=== PATIENT | female | born 1990 | race Caucasian/White ===

== ENCOUNTER 2016-12-23 21:10 | Outpatient (CLI) | payer MEDICAID ==
[~2016-12-23] VITALS: Ht 161.3 cm; Wt 81.2 kg
[2016-12-23 21:21] VITALS: Ht 161.3 cm; Wt 81.2 kg
[2016-12-23 21:22] VITALS: BP 115/66; RESP 18
[2016-12-23] MEDS ORDERED: PREN1TAB62 PO (21:24)
[2016-12-23] MEDS ORDERED: LACTATED RINGER'S 1,000 ML IV SCH (22:23)
[2016-12-23 23:50] LABS: ADD UMIC NO; URINE BILIRUBIN (Dip) NEGATIVE (NEGATIVE); URINE BLOOD (Dip) NEGATIVE (NEGATIVE); URINE COLOR LT. YELLOW (YELLOW); URINE GLUCOSE (Dip) NEGATIVE (NEGATIVE); URINE KETONES (Dip) NEGATIVE (NEGATIVE); URINE LEUKOCYTE ESTERASE (Dip) NEGATIVE (NEGATIVE); URINE NITRITE (Dip) NEGATIVE (NEGATIVE); URINE TOTAL PROTEIN (Dip) NEGATIVE (NEGATIVE); URINE UROBILINOGEN (Dip) 0.2 E.U./dL (0.1-1.0)
--- NOTE | 2016-12-24 01:42 | TRIAGE ---
OB Triage Datetime Report Generated by CPN: 12/24/2016 01:41 Datetime: 12/24/2016 00:30 Stage of : OB Triage Monitor Mode: External Heart Rate FHR Baseline Rate: 135 Monitor Mode: External US FHR Baseline Changes: No Baseline Change Variability: Moderate 6-25 bpm Accelerations: 15X15 Decelerations: None Category: Category I Datetime: 12/23/2016 23:17 Labor Evaluation Frequency: 0 Monitor Mode: External Heart Rate FHR Baseline Rate: 135 Monitor Mode: External US FHR Baseline Changes: No Baseline Change Variability: Moderate 6-25 bpm Accelerations: 15X15 Decelerations: None Category: Category I Datetime: 12/23/2016 22:30 Labor Evaluation Frequency: 5-7 Monitor Mode: External Duration (sec)2399: 60 Quality: Mild Pattern: Normal: <= 5 Contractions in 10 Minutes Resting Tone [place]: Relaxed Heart Rate FHR Baseline Rate: 135 Monitor Mode: External US FHR Baseline Changes: No Baseline Change Variability: Moderate 6-25 bpm Accelerations: 15X15 Decelerations: None Category: Category I Datetime: 12/23/2016 21:51 Vaginal Exam Dilatation (cms): 0.0 Effacement (%): 0 Station: -3 Exam By: Lamont TOVAR RN Vaginal Bleeding: None Cervix, Consistency: Firm Cervix, Position: Posterior Datetime: 12/23/2016 21:44 EGA: 31.1 Datetime: 12/23/2016 21:40 EGA: 31.1 Datetime: 12/23/2016 21:18 Stage of : OB Triage Time of Arrival: 12/23/2016 21:00 Arrived By: Wheelchair Chief Complaint: LOWER LEFT ABDOMINAL PAIN/ RT LEG PAIN INTERMITENT Movement: Present Contractions: Irregular Rupture of Membranes: Denies Vaginal Bleeding: None Vaginal Discharge: Denies Recent Sexual Intercouse: Denies Abdominal Trauma: Not Applicable Patient Complaints: None Time Provider Notified: 12/23/2016 21:55 Provider Notified: DR CHEATHAM Initial Plan: CALL MD Vivi Maternal Assessment Level of Consciousness: Fully Conscious DTR's/Clonus: DTRs 2+; No Clonus Headache: Denies Blurred Vision: No Respiratory Effort: Unlabored; Regular Rhythm; Equal Expansion Breath Sounds, Left: Clear and Equal Breath Sounds, Right: Clear and Equal Nausea/Vomiting: Denies RUQ Epigastric Pain: Denies Lower Extremities Edema: None Degree: None Upper Extremities Edema: None Degree: None Facial Edema: None Temperature Route: Oral Fall Risk Assessment History of Falling: (0) No Secondary Diagnosis: (0) No Ambulatory Aid: (0) Bedrest/Nurse Assist IV Therapy: (0) No Gait: (0) Normal/Bedrest/Immobile Mental Status: (0) Oriented to Own Ability Fall Score: 0 Fall Risk Score Definition: No Risk: No action required Monitor Mode: External Monitor Mode: External US Pain Assessment Pain Scale: 7 Pain Presence: Intermittent Pain Location: Abdomen; Right Leg
[2016-12-25] MEDS ORDERED: LACTATED RINGER'S 1,000 ML IV SCH
== END 2016-12-24 00:45 | disposition home or self-care (01) ==
LOC: OBT 21:10 → L-D 21:10 → OBT 12-24 00:45
PROVIDERS: ATTEND Obstetrics & Gynecology
DX: O60.03 Preterm labor without delivery, third trimester (principal); Z3A.31 31 weeks gestation of pregnancy
CPT/HCPCS: 36415; 81003; 82731; 87086; 96360; 96361; J7120; Z7500; G0463

== ENCOUNTER 2017-02-27 09:00 | Inpatient (IN) | payer MEDICAID ==
[~2017-02-27] VITALS: Ht 160 cm; Wt 86.0 kg
[~2017-02-27 09:00] MED LIST: PREN1TAB62 PO
[2017-02-27] MEDS: LACTATED RINGER'S 1,000 ML IV SCH ×2 (09:53→17:18)
[2017-02-27 09:54] VITALS: Ht 160 cm; Wt 86.0 kg
[2017-02-27 09:55] VITALS: BP 116/65; PULSE 89; RESP 16
[2017-02-27] MEDS ORDERED: CARBOPROST 250 MCG INJ IM PRN (10:00)
[2017-02-27] MEDS ORDERED: ACETAMINOPHEN/CODEINE #3 TAB PO PRN (10:00)
[2017-02-27] MEDS ORDERED: METHYLERGONOVINE 0.2 MG INJ IM PRN (10:00)
[2017-02-27] MEDS ORDERED: OXYTOCIN 30 UNITS/LR 500 ML IV SCH ×3 (10:00→11:00)
[2017-02-27] MEDS ORDERED: OXYCODONE/ASPIRIN (4.88/325) TAB PO PRN (10:00)
[2017-02-27] MEDS ORDERED: MISOPROSTOL 200 MCG TAB PR PRN (10:00)
[2017-02-27] MEDS ORDERED: OXYTOCIN 30 UNITS/LR 500 ML IV PRN (10:00)
[2017-02-27] MEDS ORDERED: IBUPROFEN 600 MG TAB PO PRN (10:00)
[2017-02-27] MEDS ORDERED: LIDOCAINE 1% (MPF) 30 ML INJ INJ PRN (10:00)
[2017-02-27 10:09] LABS: ADD SCAN DIFF NO
[2017-02-27 10:12] LABS: BASOPHILS % 0.2 % (0.0-2.0); EOSINOPHILS # 0.1 10^3/ul (0.0-0.5); EOSINOPHILS % 0.9 % (0.0-7.0); HEMATOCRIT 33.7 % (37.0-47.0); LYMPHOCYTES # 1.4 10^3/ul (0.8-2.9); LYMPHOCYTES % 13.7 % (15.0-51.0); MEAN CORPUSCULAR HEMOGLOBIN 28.7 pg (29.0-33.0); MEAN CORPUSCULAR HGB CONC 32.6 g/dl (32.0-37.0); MEAN PLATELET VOLUME 11.4 fl (7.4-10.4); MONOCYTE # 0.9 10^3/ul (0.3-0.9); MONOCYTES % 8.9 % (0.0-11.0); NEUTROPHIL # 7.7 10^3/ul (1.6-7.5); NEUTROPHILS % 74.8 % (39.0-77.0); PLATELET COUNT 195 10^3/UL (140-415); RED BLOOD COUNT 3.83 10^6/ul (4.20-5.40); WHITE BLOOD COUNT 10.3 10^3/ul (4.8-10.8)
[2017-02-27 10:22] LABS: INR 0.91; PARTIAL THROMBOPLASTIN TIME 25.6 Sec (25.0-35.0); PROTIME 12.2 Sec (12.2-14.2)
[2017-02-27] MEDS ORDERED: LACTATED RINGER'S 1,000 ML IV PRN (11:00)
[2017-02-27] MEDS ORDERED: MINERAL OIL LIGHT 10 ML VIAL TOP PRN (11:00)
--- NOTE | 2017-02-27 17:57 | HP ---
Date/Time of Note Date/Time of Note DATE: 02/27/17 TIME: 17:54 OB - History Hx of Present Free Text/Dictation admitted for repeat C/S at term Last Menstrual Period: Jun 08, 2016 Estimated Due Date: Mar 04, 2017 : 4 Para: 3 Ultrasounds: Normal mid trimester US Obstetrical Complications: Gestational Diabetes Medical Complications: None Past Family/Social History * Past Medical, Surgical, Family and Obstetric Histories reviewed from chart. Blood Type: O+ Rubella: immune RPR/VDRL: Negative GBS Status: Negative HBsAG: Negative OB Admission Exam Vital Signs Vital Signs Vital Signs Date Time Temp Pulse Resp B/P Pulse Ox O2 Delivery O2 Flow Rate FiO2 02/27/17 09:55 99.5 89 16 116/65 Physical Exam HEENT: WNL Heart: Rhythm Normal Lungs: Clear, Equal Abdomen: WNL Extremities: Normal Reflexes: Normal Cervical Dilatation: None Effacement: 0% Station: -3 Membranes: Intact Heart Rate: 130's Accelerations: Accelerations Present Decelerations: No Decelerations Varibility: Marked Contractions on Admission: None Last 72 hours Lab Results CBC & BMP 02/27/17 09:50 OB Assessment/Plan Other Assessment: term gestation previous C/S X 3 Other plan: repeat C/S ANT ZAVALA MD Feb 27, 2017 17:57
--- NOTE | 2017-02-27 18:01 | OPR ---
Operative Report Planned Procedure Procedure date Feb 27, 2017 Procedure(s) repeat C/S Performed by: ANT ZAVALA MD Assisting provider: MALOU DUKE MD Anesthesiologist: PRETTY TRENT MD Pre-procedure diagnosis term gestation previous C/S X 3 Anesthesia Type: spinal Procedure Description Under satisfactory anaesthesia a Pfannenstiel incision was made two fingerbreadth above and parallel to the symphysis of pubis around the previous scar and previous scar was removed Incision was extended laterally to the border of the Recti muscles on either sides. Incision was carried down with sharp and blunt dissection until fascia was reached. Anterior Recti muscle fascia was incised in mid portion and incision extended laterally to the border of skin incision. Fascia was mobilized from muscle superiorly and Recti muscles were from midline using sharp and blunt dissection. Peritoneum was visualized; Avoiding bowel and bladder it was incised . Incision was extended superiorly and inferiorly. Bladder blade was placed. Posterior peritoneum covering the lower segment of the uterus and lower segment of the uterus were incised.Low transverse uterine incision was made on lower segment of the uterus. Incision extended laterally to the border of Round Lig. on either sides and baby was delivered from OT. position . Amniotic fluid appeared clear. Cord blood was obtained and cord had 3 vessels . Placenta was delivered spontaneously and appeared intact and complete. Intrauterine cavity was rubbed with a laparotomy sponge. Uterine incision was closed in 2 layers using running stitches of No1 Monocryl. Hemostasis appeared secure. Ovaries and Fallopian tubes were within normal limits. Peritoneum and Recti muscles with running stitches of 20 Vicryl. Fascia with running stitch of No 1 PDS. Subcutaneous tissue with running stitches of 20 Chromic and skin was closed using corbin. Patient tolerated the procedure well and was transferred to [facility] in good condition. Post-Procedure Post-procedure diagnosis S/P C/S Findings: Live Baby Specimen removed: No Complications: None Pt Condition post procedure: stable Disposition: PACU Physician Certification I, the undersigned physician, hereby certify that I have discussed the procedure described in this consent form with this patient (or the patient's legal dental detail representative), including: * The risk and benefits of the procedure; * Any adverse reactions that may reasonably be expected to occur; * Any alternative efficacious methods of treatment which may be medically viable ; * The potential problems that may occur during recuperation; * Potential for blood transfusion and associated risks/benefits; and * Any research or economic interest I may have regarding this treatment. I further certify that the patient/legally responsible person was encouraged to ask question and that all questions were answered. ANT ZAVALA MD Feb 27, 2017 18:01
--- NOTE | 2017-02-27 19:33 | HP ---
Date/Time of Note Date/Time of Note DATE: 02/27/17 TIME: 19:29 OB - History Hx of Present Free Text/Dictation admitted for induction of the labor at 40 + weeks Last Menstrual Period: May 24, 2016 Estimated Due Date: Feb 27, 2017 : 2 Para: 1 Care: Good Care Ultrasounds: Normal mid trimester US Obstetrical Complications: None Past Family/Social History * Past Medical, Surgical, Family and Obstetric Histories reviewed from chart. Blood Type: O+ Rubella: immune RPR/VDRL: Negative GBS Status: Negative HBsAG: Negative OB Admission Exam Vital Signs Vital Signs Vital Signs Date Time Temp Pulse Resp B/P Pulse Ox O2 Delivery O2 Flow Rate FiO2 02/27/17 09:55 99.5 89 16 116/65 Physical Exam HEENT: WNL Heart: Rhythm Normal Lungs: Clear, Equal Abdomen: WNL Extremities: Normal Reflexes: Normal Cervical Dilatation: 1cm Effacement: 50% Station: -3 Membranes: Intact Heart Rate: 130's Accelerations: Accelerations Present Decelerations: No Decelerations Varibility: Moderate Contractions on Admission: < 5 Minutes Apart Date/Time Contractions Began: ? Frequency of Contractions: ? Duration: ? Last 72 hours Lab Results CBC & BMP 02/27/17 09:50 OB Assessment/Plan Reason for admission: induction of labor Other Assessment: term gestation for induction of the labor Induction Method: per Pitocin Protocol ANT ZAVALA MD Feb 27, 2017 19:33
[2017-02-27] MEDS ORDERED: BUTORPHANOL 2 MG INJ IV PRN (20:00)
[2017-02-27] MEDS ORDERED: MINERAL OIL LIGHT 10 ML VIAL TOP ONE (22:30)
--- NOTE | 2017-02-27 23:59 | LDN ---
Date/Time of Note Date/Time of Note DATE: 02/27/17 TIME: 23:56 Delivery Summary of a viable infant over intact perineum Weeks of Gestation 40 Placenta Delivered: Spontaneously, Intact & Complete Meconium: none Episiotomy: No Laceration repair: small vestibular laceration was repaired with 4 0 Chromic Anesthesia type: Local Estimated blood loss: 300 Sponge & Needle done & correct: Yes All needle counts correct: Yes Any foreign bodies felt in the: No Problems: Delivery Information Sex Infant Sex: female Apgars 1 Minute: 9 5 Minute: 9 Suctioning Nose & mouth suctioned at [place]: Yes Delee suction performed: No Umbilical Cord Umbilical cord with: 3 Vessels Cord presentations: no nuchal cord Cord Blood was obtained: Yes Mother & Baby Disposition Disposition Mom & Baby to Maternity; Good: Yes (mother and baby were recovered in good condition ) Mom transferred to: Other (maternity ) Baby to NICU: No ANT ZAVALA MD Feb 27, 2017 23:59
[2017-02-28 01:50] VITALS: BP 109/57; PULSE 79; RESP 19
[2017-02-28] MEDS ORDERED: BENZOCAINE 20% 56 ML SPRAY TOP PRN (02:00)
[2017-02-28] MEDS ORDERED: ZOLPIDEM 5 MG TAB PO PRN (02:00)
[2017-02-28] MEDS ORDERED: WITCH HAZEL/GLYCERIN PAD PR PRN (02:00)
[2017-02-28] MEDS ORDERED: OXYTOCIN 30 UNITS/LR 500 ML IV PRN (02:00)
[2017-02-28] MEDS ORDERED: LANOLIN 7 GM TUBE TOP PRN (02:00)
[2017-02-28] MEDS ORDERED: DIBUCAINE 1% 30 GM OINT PR PRN (02:00)
[2017-02-28] MEDS ORDERED: CARBOPROST 250 MCG INJ IM PRN (02:00)
[2017-02-28] MEDS ORDERED: MISOPROSTOL 200 MCG TAB PR PRN (02:00)
[2017-02-28] MEDS ORDERED: METHYLERGONOVINE 0.2 MG INJ IM PRN (02:00)
[2017-02-28] MEDS ORDERED: ACETAMINOPHEN/CODEINE #3 TAB PO PRN ×2 (02:00)
[2017-02-28 03:00] VITALS: BP 106/58; PULSE 88; RESP 19
[2017-02-28] MEDS: LACTATED RINGER'S 1,000 ML IV* SCH ×2 (04:24→09:59)
[2017-02-28] MEDS: CEPHALEXIN 500 MG CAP PO SCH ×4 (05:30→23:46)
[2017-02-28] MEDS: IBUPROFEN 600 MG TAB PO SCH ×4 (05:30→23:46)
[2017-02-28 08:00] VITALS: BP 107/53; PULSE 80; RESP 17
[2017-02-28 08:44] LABS: ADD SCAN DIFF NO
[2017-02-28 08:47] LABS: BASOPHILS % 0.1 % (0.0-2.0); EOSINOPHILS % 0.1 % (0.0-7.0); HEMATOCRIT 30.2 % (37.0-47.0); HEMOGLOBIN 9.6 g/dl (12.0-16.0); LYMPHOCYTES # 1.5 10^3/ul (0.8-2.9); LYMPHOCYTES % 9.1 % (15.0-51.0); MEAN CORPUSCULAR HEMOGLOBIN 28.4 pg (29.0-33.0); MEAN CORPUSCULAR HGB CONC 31.8 g/dl (32.0-37.0); MEAN CORPUSCULAR VOLUME 89.3 fl (82.0-101.0); MEAN PLATELET VOLUME 11.8 fl (7.4-10.4); MONOCYTE # 1.2 10^3/ul (0.3-0.9); MONOCYTES % 7.4 % (0.0-11.0); NEUTROPHIL # 13.6 10^3/ul (1.6-7.5); NEUTROPHILS % 82.6 % (39.0-77.0); PLATELET COUNT 175 10^3/UL (140-415); RED BLOOD COUNT 3.38 10^6/ul (4.20-5.40); RED CELL DISTRIBUTION WIDTH 15.4 % (11.5-14.5); WHITE BLOOD COUNT 16.5 10^3/ul (4.8-10.8)
[2017-02-28] MEDS: SENNA/DOCUSATE NA (8.6MG/50MG) TAB PO SCH ×2 (09:28→21:19)
[2017-02-28] MEDS: MAGNESIUM HYDROXIDE 30ML CUP PO SCH ×2 (09:28→21:19)
[2017-02-28 12:10] VITALS: BP 125/65; PULSE 84; RESP 20
[2017-02-28 16:20] VITALS: BP 112/64; PULSE 80; RESP 17
--- NOTE | 2017-02-28 16:46 | DS ---
Date/Time of Note Date/Time of Note home next day DATE: 02/28/17 TIME: 16:45 Obstetrical Discharge Record Final Diagnosis Final Diagnosis: Term delivered Other Final Diagnosis S/P vaginal delivery Vaginal Delivery Obstetrical Delivery: Spontaneous, Laceration, Repaired Complications Augmentation: Yes Condition on Discharge Physical Assessment Last Vitals: see nurses notes Voiding: Yes Bowel Movement: Yes Breast: Soft, non-tender, Filling Fundus: Firm Abdomen and Incision: soft BS + Episiotomy: NA Calf Tenderness: No Patient Condition: Good ANT ZAVALA MD Feb 28, 2017 16:46
--- NOTE | 2017-02-28 16:48 | PD.PPDC ---
[employer]AVE Discharge Instruction Provider Information Physician Information 26 y/o female had vaginal delivery Diagnosis Final Diagnosis: S/P vaginal delivery Condition Patient Condition: Good Diet Diet: Resume Regular Diet Activity/Restrictions Activity: Normal Activity May Shower Restrictions: Nothing in the Vagina Return to Work or School: April 17, 2017 Follow-up Follow-up with Physician: 4, Week/Weeks (in clinic ) Return to clinic for OB Instructions: Breast Tenderness Depression ANT ZAVALA MD Feb 28, 2017 16:48
[2017-02-28] MEDS ORDERED: IBUP-1542 PO (16:49)
[2017-02-28] MEDS ORDERED: CEPH500C PO (16:49)
[2017-02-28 19:35] VITALS: BP 122/62; PULSE 79
[2017-03-01 03:50] VITALS: BP 111/60; PULSE 70; RESP 19
[2017-03-01] MEDS: IBUPROFEN 600 MG TAB PO SCH ×2 (05:42→11:54)
[2017-03-01] MEDS: CEPHALEXIN 500 MG CAP PO SCH ×2 (05:42→11:54)
[2017-03-01 07:45] VITALS: BP 95/61; PULSE 79; RESP 18
[2017-03-01] MEDS ORDERED: DIPHTH/TET/ACEL PERTUSS (ADULT) 0.5 ML VIAL IM* ONE (09:00)
[2017-03-01] MEDS ORDERED: VARICELLA VACCINE LIVE/PF 1,350 UNIT/0.5 ML ML SC* ONE (09:00)
[2017-03-01] MEDS ORDERED: MEASLES,MUMPS,RUBELLA VACCINE INJ SC* ONE (09:00)
[2017-03-01] MEDS: SENNA/DOCUSATE NA (8.6MG/50MG) TAB PO SCH (09:27)
[2017-03-01] MEDS: MAGNESIUM HYDROXIDE 30ML CUP PO SCH (09:27)
[2017-03-01 10:13] LABS: ADD SCAN DIFF NO
[2017-03-01 10:16] LABS: BASOPHILS % 0.4 % (0.0-2.0); EOSINOPHILS # 0.1 10^3/ul (0.0-0.5); EOSINOPHILS % 1.1 % (0.0-7.0); HEMATOCRIT 30.1 % (37.0-47.0); HEMOGLOBIN 9.5 g/dl (12.0-16.0); MEAN CORPUSCULAR HEMOGLOBIN 28.6 pg (29.0-33.0); MEAN CORPUSCULAR HGB CONC 31.6 g/dl (32.0-37.0); MEAN CORPUSCULAR VOLUME 90.7 fl (82.0-101.0); MEAN PLATELET VOLUME 11.5 fl (7.4-10.4); MONOCYTE # 0.8 10^3/ul (0.3-0.9); NEUTROPHIL # 7.6 10^3/ul (1.6-7.5); NEUTROPHILS % 70.7 % (39.0-77.0); PLATELET COUNT 184 10^3/UL (140-415); RED BLOOD COUNT 3.32 10^6/ul (4.20-5.40); RED CELL DISTRIBUTION WIDTH 15.5 % (11.5-14.5); WHITE BLOOD COUNT 10.7 10^3/ul (4.8-10.8)
== END 2017-03-01 16:41 | disposition home or self-care (01) | DRG 775 ==
LOC: L-D 09:14 → PP1 02-28 01:48
PROVIDERS: ADMIT Obstetrics & Gynecology; ATTEND Obstetrics & Gynecology
PROC: 0HQ9XZZ Repair Perineum Skin, External Approach (ICD-10-PCS; 2017-02-27)
PROC: 3E033VJ Introduction of Other Hormone into Peripheral Vein, Percutaneous Approach (ICD-10-PCS; 2017-02-27)
PROC: 10E0XZZ Delivery of Products of Conception, External Approach (ICD-10-PCS; principal; 2017-02-27 09:00)
DX: O48.0 Post-term pregnancy (principal); O70.0 First degree perineal laceration during delivery; Z3A.40 40 weeks gestation of pregnancy; Z37.0 Single live birth
CPT/HCPCS: 85025; 85610; 85730; 86592; 86900; 86901; 87070; 87340; 90715; 90716; J2590; J7120

== ENCOUNTER 2019-04-04 17:06 | Emergency (ER) | payer MEDICAID ==
[~2019-04-04] VITALS: Ht 162.6 cm; Wt 76.5 kg
[~2019-04-04 17:06] MED LIST changes: +CEPH500C PO; +IBUP-1542 PO
[2019-04-04 17:58] VITALS: Ht 162.6 cm; Wt 76.5 kg
[2019-04-04] MEDS ORDERED: AMOX1TAB10 PO (20:28)
[2019-04-04] MEDS ORDERED: DIPHTH/TET/ACEL PERTUSS (ADULT) 0.5 ML VIAL IM* ONE (20:30)
--- NOTE | 2019-04-04 20:32 | ERD ---
ER Documentation Chief Complaint Chief Complaint R knee/leg pain after dog bite earlier today HPI 28-year-old female no significant past medical history presents for right knee dog bite earlier today. States that it was her boss dog. The dog is fully immunized. She states that she is in 6 out of 10 pain that is described as sharp. Denies fevers or chills. Denies chest pain or shortness of breath. She does not know when the last tetanus shot was. Otherwise no other modifying factors noted, no treatment tried at home. ROS All systems reviewed and are negative except as per history of present illness. Medications Home Meds Active Scripts Amoxicillin/Potassium Clav (Amox-Clav 875-125 mg Tablet) 875-125 mg Tab, 1 TAB PO BID for dog bite for 3 Days, #6 TAB Prov:LAURA BAUMAN DO 04/04/19 Ibuprofen* (Ibuprofen*) 600 Mg Tablet, 600 MG PO Q6, #30 TAB 0 Refills Prov:ANT ZAVALA MD 02/28/17 Cephalexin* (Cephalexin*) 500 Mg Capsule, 500 MG PO Q6, #20 CAP 0 Refills Prov:ANT ZAVALA MD 02/28/17 Reported Medications Vit-Iron Fumarate-FA ( Vitamin Tablet) 1 Each Tablet, 1 TAB PO DAILY, TAB 12/23/16 Allergies Allergies: Coded Allergies: No Known Allergy (Unverified , 12/23/16) PMhx/Soc Medical and Surgical Hx: pt denies Medical Hx, pt denies Surgical Hx History of Surgery: No Hx Neurological Disorder: No Hx Respiratory Disorders: No Hx Cardiac Disorders: No Hx Psychiatric Problems: No Hx Miscellaneous Medical Probl: No Hx Alcohol Use: No Hx Substance Use: No Hx Tobacco Use: No Smoking Status: Never smoker FmHx Family History: No coronary disease Physical Exam Vitals Vital Signs Date Temp Pulse Resp B/P (MAP) Pulse Ox O2 O2 Flow FiO2 Time Delivery Rate 04/04/19 97.8 72 17 132/72 98 Room Air 20:42 (92) 04/04/19 97.8 74 18 141/79 99 17:58 (99) Physical Exam Const: No acute distress Resp: Clear to auscultation bilaterally Cardio: Regular rate and rhythm, no murmurs, peripheral pulses intact Abd: Soft, non tender, non distended. Normal bowel sounds Skin: No petechiae or rashes Back: No midline or flank tenderness Ext: 2 small puncture wounds noted over the right knee, there is no active bleeding. Neur: Awake and alert, bilateral lower extremity sensation intact, 5 out of 5 muscle strength bilateral lower extremities Psych: Normal Mood and Affect Results 24 hrs Current Medications Medications Dose Sig/Isabel Start Time Status Last (Trade) Ordered Route PRN Stop Time Admin Dose Reason Admin Diphtheria/ 0.5 ml ONCE ONCE 04/04/19 DC 04/04/19 Tetanus/Acell IM* 20:30 04/04/19 20:18 Pertussis 20:31 (Adacel) Procedures/MDM Medical Decision Making: Patient presents with dog bite of the right knee, there is no erythema over lying the area. Patient appeared well on physical exam. The dog is patient's boss' dog. She states that the dog is immunized. The bite area is clean dry and intact, there is no erythema or warmth or swelling to suggest infection currently. Patient's tetanus was updated in the ER. Wound was irrigated. Prescription(s): Patient given prescription for Augmentin prophylaxis for infection. Patient advised to follow up with PCP in 1-2 days. Patient advised to return to ED for new or worsening symptoms. Patient stable on discharge from the ED. Disclaimer: Inadvertent spelling and grammatical errors are likely due to EHR/dictation software use and do not reflect on the overall quality of patient care. Also, please note that the electronic time recorded on this note does not necessarily reflect the actual time of the patient encounter. Departure Diagnosis: Primary Impression: Dog bite Condition: Fair Patient Instructions: Dog Bite Referrals: [facility] YOU HAVE RECEIVED A MEDICAL SCREENING EXAM AND THE RESULTS INDICATE THAT YOU DO NOT HAVE A CONDITION THAT REQUIRES URGENT TREATMENT IN THE EMERGENCY DEPARTMENT. FURTHER EVALUATION AND TREATMENT OF YOUR CONDITION CAN WAIT UNTIL YOU ARE SEEN IN YOUR DOCTORS OFFICE WITHIN THE NEXT 1-2 DAYS. IT IS YOUR RESPONSIBILITY TO MAKE AN APPOINTMENT FOR FOLOW-UP CARE. IF YOU HAVE A PRIMARY DOCTOR --you should call your primary doctor and schedule an appointment IF YOU DO NOT HAVE A PRIMARY DOCTOR YOU CAN CALL OUR PHYSICIAN REFERRAL HOTLINE AT IF YOU CAN NOT AFFORD TO SEE A PHYSICIAN YOU CAN CHOSE FROM THE FOLLOWING [facility] [id number] [facility]. [facility] [address] [facility] [address] [facility] [address] [facility] [address] [facility]. [facility] [address] Additional Instructions: Llame al doctor MAANA y nasim thaddeus VENANCIO PARA DENTRO DE 1-2 CAMPBELL.Dgale a la secretaria que nosotros le instruimos hacer esta venancio.Avise o llame si champagne condicin se empeora antes de la venancio. Regresa aqui si peor o no mejor. LAURA BAUMAN DO April 04, 2019 20:32
[2019-04-04 20:42] VITALS: BP 132/72; PULSE 72; RESP 17
== END 2019-04-04 20:42 | disposition home or self-care (01) ==
LOC: FTE 17:06
DX: S81.031A Puncture wound without foreign body, right knee, initial encounter (principal); W54.0XXA Bitten by dog, initial encounter; Y92.9 Unspecified place or not applicable; Z23 Encounter for immunization
CPT/HCPCS: 90471; 90715; Z7502

== ENCOUNTER 2019-05-20 14:44 | Emergency (ER) | payer MEDICAID ==
[~2019-05-20] VITALS: Ht 160 cm; Wt 79.2 kg
[~2019-05-20 14:44] MED LIST changes: +AMOX1TAB10 PO
[2019-05-20 14:48] VITALS: Ht 160 cm; Wt 79.2 kg
[2019-05-20] MEDS ORDERED: SODIUM CHLORIDE 0.9% 1L BAG IV* STA (15:05)
[2019-05-20] MEDS ORDERED: ONDANSETRON 4 MG INJ IV STA (15:05)
[2019-05-20] MEDS ORDERED: ACETAMINOPHEN 325 MG TAB PO STA (15:05)
[2019-05-20] MEDS ORDERED: morphine 4 MG/ML VIAL IV STA (15:05)
[2019-05-20] MEDS ORDERED: CEFEPIME 2GM/50 ML (PMX) 50 ML IVPB STA (15:05)
--- NOTE | 2019-05-20 15:07 | ERD ---
ER Documentation Chief Complaint Chief Complaint abdominal pain radiating to back x 3 days HPI 28-year-old female presenting with left flank pain radiating to the left upper and lower abdomen for the past 4 days. Pain has been constant, 9 out of 10, with no alleviating or exacerbating factors. She has associated dysuria, fever, chills, vomiting that is nonbloody and nonbilious. She has tried Advil without relief of her symptoms. She denies any history of kidney problems, UTI, or kidney infections. She recently finished her menstrual period. ROS All systems reviewed and are negative except as per history of present illness. Medications Home Meds Active Scripts Ondansetron (Ondansetron Odt) 4 Mg Tab.rapdis, 4 MG PO Q6H PRN for NAUSEA AND/OR VOMITING, #10 TAB Prov:YAMILETH MOTA MD 05/20/19 Ibuprofen* (Motrin*) 800 Mg Tab, 800 MG PO Q6H PRN for PAIN AND OR ELEVATED TEMP, #30 TAB Prov:YAMILETH MOTA MD 05/20/19 Ciprofloxacin Hcl* (Ciprofloxacin Hcl*) 500 Mg Tablet, 500 MG PO BID for 7 Days, TAB Prov:YAMILETH MOTA MD 05/20/19 Discontinued Reported Medications Vit-Iron Fumarate-FA ( Vitamin Tablet) 1 Each Tablet, 1 TAB PO DAILY, TAB 12/23/16 Discontinued Scripts Amoxicillin/Potassium Clav (Amox-Clav 875-125 mg Tablet) 875-125 mg Tab, 1 TAB PO BID for dog bite for 3 Days, #6 TAB Prov:LAURA BAUMAN DO 04/04/19 Ibuprofen* (Ibuprofen*) 600 Mg Tablet, 600 MG PO Q6, #30 TAB 0 Refills Prov:ANT ZAVALA MD 02/28/17 Cephalexin* (Cephalexin*) 500 Mg Capsule, 500 MG PO Q6, #20 CAP 0 Refills Prov:ANT ZAVALA MD 02/28/17 Allergies Allergies: Coded Allergies: No Known Allergy (Unverified , 12/23/16) PMhx/Soc Medical and Surgical Hx: pt denies Medical Hx, pt denies Surgical Hx History of Surgery: No Hx Neurological Disorder: No Hx Respiratory Disorders: No Hx Cardiac Disorders: No Hx Psychiatric Problems: No Hx Miscellaneous Medical Probl: No Hx Alcohol Use: No Hx Substance Use: No Hx Tobacco Use: No FmHx Family History: No diabetes Physical Exam Vitals Vital Signs Date Temp Pulse Resp B/P (MAP) Pulse Ox O2 O2 Flow FiO2 Time Delivery Rate 05/20/19 101.8 112 20 151/87 99 14:48 (108) Physical Exam Const: No acute distress, appears flushed Head: Atraumatic Eyes: Normal Conjunctiva ENT: Normal External Ears, Nose and Mouth. Neck: Full range of motion. No meningismus. Resp: Clear to auscultation bilaterally Cardio: Tachycardic with regular rhythm, no murmurs Abd: Soft, minimal left-sided diffuse tenderness, no rebound or guarding, non distended. Normal bowel sounds Skin: Skin flushed. No petechiae or rashes Back: No midline or flank tenderness Ext: Left CVA tenderness Neur: Awake and alert Psych: Normal Mood and Affect Result Diagram: 05/20/19 1515 05/20/19 1515 Results 24 hrs Laboratory Tests Test 05/20/19 15:05 05/20/19 15:06 05/20/19 15:07 05/20/19 15:15 Bedside Urine pH 7.0 (LAB) Bedside Urine Negative Protein (LAB) Bedside Urine Negative Glucose (UA) Bedside Urine Negative Ketones (LAB) Bedside Urine 1+ Blood Bedside Urine Negative Nitrite (LAB) Bedside Urine 1+ Leukocyte Esterase (L POC Beta HCG, NEGATIVE Qualitative POC Venous Lactate 1.1 mmol/L White Blood Count 12.3 10^3/ul Red Blood Count 4.63 10^6/ul Hemoglobin 13.7 g/dl Hematocrit 41.5 % Mean Corpuscular 89.6 fl Volume Mean Corpuscular 29.6 pg Hemoglobin Mean Corpuscular 33.0 g/dl Hemoglobin Concent Red Cell 12.7 % Distribution Width Platelet Count 289 10^3/UL Mean Platelet 10.4 fl Volume Immature 0.300 % Granulocytes % Neutrophils % 77.7 % Lymphocytes % 11.9 % Monocytes % 9.2 % Eosinophils % 0.6 % Basophils % 0.3 % Nucleated Red 0.0 /100WBC Blood Cells % Immature 0.040 10^3/ul Granulocytes # Neutrophils # 9.5 10^3/ul Lymphocytes # 1.5 10^3/ul Monocytes # 1.1 10^3/ul Eosinophils # 0.1 10^3/ul Basophils # 0.0 10^3/ul Nucleated Red 0.0 10^3/ul Blood Cells # Urine Color COLORLESS Urine Clarity CLEAR Urine pH 8.0 Urine Specific 1.002 [place] Urine Ketones NEGATIVE mg/dL Urine Nitrite NEGATIVE mg/dL Urine Bilirubin NEGATIVE mg/dL Urine Urobilinogen NEGATIVE mg/dL Urine Leukocyte 2+ Ema/ul Esterase Urine Microscopic 0 /HPF RBC Urine Microscopic 4 /HPF WBC Urine Squamous FEW /HPF Epithelial Cells Urine Bacteria FEW /HPF Urine Hemoglobin 1+ mg/dL Urine Glucose NEGATIVE mg/dL Urine Total NEGATIVE mg/dl Protein Sodium Level 143 mmol/L Potassium Level 3.6 mmol/L Chloride Level 102 mmol/L Carbon Dioxide 27 mmol/L Level Anion Gap 14 Blood Urea 10 mg/dl Nitrogen Creatinine 0.63 mg/dl Est Glomerular > 60 mL/min Filtrat Rate mL/min Glucose Level 105 mg/dl Calcium Level 9.4 mg/dl Total Bilirubin 0.7 mg/dl Direct Bilirubin 0.00 mg/dl Indirect Bilirubin 0.7 mg/dl Aspartate Amino 28 IU/L Transf (AST/SGOT) Alanine 19 IU/L Aminotransferase ( ALT/SGPT) Alkaline 85 IU/L Phosphatase Total Protein 8.1 g/dl Albumin 4.5 g/dl Globulin 3.60 g/dl Albumin/Globulin 1.25 Ratio Lipase 105 U/L Current Medications Medications Dose Sig/Isabel Start Time Status Last (Trade) Ordered Route PRN Stop Time Admin Dose Reason Admin Sodium 2,380 ml BOLUS OVER 2 05/20/19 DC 05/20/19 Chloride HOURS STAT 15:05 15:23 (NS) IV* 05/20/19 15:07 650 mg ONCE STAT 05/20/19 DC 05/20/19 Acetaminophen PO 15:05 15:23 (Tylenol 05/20/19 15:08 Tab) Morphine 4 mg ONCE STAT 05/20/19 DC 05/20/19 Sulfate IV 15:05 15:22 (morphine) 05/20/19 15:08 Ondansetron 4 mg ONCE STAT 05/20/19 DC 05/20/19 HCl (Zofran IV 15:05 15:22 Inj) 05/20/19 15:08 Cefepime HCl 50 ml @ ONCE STAT 05/20/19 DC 05/20/19 100 mls/hr IVPB 15:05 15:44 05/20/19 15:34 Procedures/MDM EMERGENT LABS AND DIAGNOSTIC STUDIES: Lab Results above were reviewed and interpreted by me. CBC: Leukocytosis, consistent with acute infection. No anemia CMP: No evidence of clinically significant electrolyte abnormality, acidosis, renal failure, hypoglycemia, liver disease, or biliary obstruction Lipase: no evidence of pancreatitis Lactate within normal limits without evidence of sepsis or tissue hypoperfusion UA: evidence of infection negative Radiology Results as interpreted by Radiology below were reviewed by Irma Mota MD: Chest x-ray shows no acute abnormalities Initial Nursing notes reviewed. Previous Medical Records requested via the Electronic Health Record. EMERGENCY DEPARTMENT COURSE / MEDICAL DECISION MAKING: Patient's presentation is consistent with sepsis due to pyelonephritis. Sepsis work-up was initiated. No evidence of severe sepsis or septic shock. I have a low suspicion for acute surgical abdomen or ureterolithiasis. Patient feels much better after treatment in the ER with pain medications, fluids, and antibiotics. I feel the patient is stable for discharge with outpatient manag ement of her pyelonephritis. She will be given a Cipro prescription. Strict return precautions were discussed. Patient understands discharge plan. Critical Care Time: 35 minutes Treatments/Evaluations: Close monitoring and treatment of unstable vital signs, cardiorespiratory, and neurologic status, while maintaining tight balance of fluid, respiratory, and cardiac interventions. This includes the administration of emergency fluid management while maintaining close respiratory support as well as the provision of immediate and broad-spectrum antibiotic therapy, while performing a simultaneous assessment for possible sources in order to direct targeted therapy. This time includes discussing the case with the patient and the patients family.This time also includes the consideration for invasive and chemical support to prevent cardiopulmonary collapse. This time does not include all procedures stated elsewhere in this record. This time also includes reviewing old records, labs and radiological studies. This time includes examining and reexamining the patient. Additionally, this time also includes arranging care with admitting and consulting physicians. Departure Diagnosis: Primary Impression: Pyelonephritis Additional Impression: Sepsis Sepsis type: sepsis due to unspecified organism Qualified Codes: A41.9 - Sepsis, unspecified organism Condition: Stable EKYAMILETH JONES MD May 20, 2019 15:07
[2019-05-20] MEDS ORDERED: ONDA4TAB14 PO (15:48)
[2019-05-20] MEDS ORDERED: CIPR500T4 PO (15:48)
[2019-05-20] MEDS ORDERED: IBUP800T48 PO (15:48)
[2019-05-20 17:12] VITALS: BP 116/71; PULSE 97; RESP 18
== END 2019-05-20 17:25 | disposition home or self-care (01) ==
LOC: E/R 14:44
DX: N12 Tubulo-interstitial nephritis, not specified as acute or chronic (principal); A41.9 Sepsis, unspecified organism
CPT/HCPCS: 36415; 71045; 80053; 81001; 81003; 81025; 83605; 83690; 85025; 87086; 96374; 96375; J0692; J2270; J2405; J7030